=== PATIENT | male | born 1950 | race Caucasian/White ===

== ENCOUNTER → 2018-05-17 | Outpatient (CLI) | payer OTHER ==
[~2018-05-17] VITALS: Ht 175.3 cm; Wt 84.3 kg
[~2018-05-17] MED LIST: AMBIEN 5 MG TABL5 M1 PO; CELEXA40 MG PO; MS CONTIN15 MG PO; ZESTORETIC 20-1 EAC3 PO
--- NOTE | ~2018-05-17 | HPC ---
[facility] [place] [address] PAIN MANAGEMENT CONSULTATION Name: AMIEMARGARITO D Room #: REG [facility]#: [id number] Admission: 05/17/18 Attend Phys: Qasim Sam MD Discharge: Date of : 52 Report #: [id number] THIS REPORT FOR: //name// CC: Dr. Daniel GARCIA DO Renata Sam DATE OF SERVICE: 05/17/2018 CHIEF COMPLAINT: Bilateral lower extremity and back pain following work-related injury. I am seeing the patient today at the request of Workmen's Compensation. He is a 67-year-old who is also being sent to us by Dr. Sanchez, Neurosurgery, for evaluation and possible epidural steroid injection treatments. The patient was at work on 09/15/2017. 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 He immediately had some numbness in his right leg and pain in his upper back to the left. He has since that time been unable perform his tasks at work. He attempted to return to work but was incapacitated by pain. He a pain level of 10/10 throughout the day and his descriptors of pain include continuous, constant, sharp pain. Much of his pain is in the low back, radiating through the left buttock cheek and down into the lower leg. He also has pain in his thoracic region that radiates around the chest wall, also on the left. He has had 2 courses of physical therapy, the first after his initial injury, did not provide substantial improvement and he is currently still attending sessions with [facility] now in [place]. He attends 3-4 times a week and tells me that he does have some home exercise that he is trying. Watching his dramatic painful movements in the clinic I can't imagine that he is able to accomplish much independently from an exercise standpoint. He reports that the pain is made worse with prolonged sitting, any standing and walking and he has found nothing to improve his pain intensity. He reports that in order to be paid at work, he must go in and so he has been going to work, but the pain is so severe that at times he simply lays on the floor while he is there in order to serve his time requirements. He has seen three surgeons, Dr. Condon, Dr. Sanchez and Dr. White. There has been some disagreement on the merits of surgery, but he has apparently been offered a thoracolumbar fusion. The procedure has been denied by coverage and he reports to us that he is in litigation to get approval for surgery which he [address] [address] PAIN MANAGEMENT CONSULTATION Name: MARGARITO HOLLOWAY [facility] [id number] Admission: 05/17/18 Attend Phys: Qasim Sam MD Discharge: Date of : 52 Report #: [id number] feels will solve his pain problems. MEDICATIONS: Citalopram 40 mg daily, zolpidem 10 mg at bedtime, morphine sulfate 15 mg every 6-8 hours intermediate release and lisinopril 20/125 one tablet b.i.d. ALLERGIES: None listed. PAST MEDICAL HISTORY: Hypertension is his only chronic medical conditon . PAST SURGICAL HISTORY: He had laminectomy in 1992 and a second in 1994. From x-ray, it appears that this was at L5 on the right. He was able to return to work. SOCIAL HISTORY: He previously lived in [place] during the time of his back injuries in the . He was working there up until 14 years ago when he moved to [place] to be closer to family. He is . Denies the use of tobacco, drinks alcoholic beverages 1-3 times per week in a social setting. Denies the use of any recreational drugs, any history of addictions or family history of addictions. He enjoys outdoor activities and is unhappy that his pain limits his ability to downing this fall. He enjoys deer hunting with rifle. He retired a few years ago but says it wasn't for him. He returned to work and developed this condition which now dictates his life. The patient is currently in the process of litigation in attempts to get surgery approved. He is receiving workmen's disability payments. Impact of pain score which reviews the way in which pain interferes with activities on a 0-10 scale is scored 10 for general activity, mood, sleep, walking ability, relationships with others and enjoyment of life. REVIEW OF SYSTEMS: Positive for dyspnea on exertion and shortness of breath when lying flat, generalized fatigue, weakness and weight gain. He has nocturia, sexual difficulties, fatigue, weakness, numbness and tingling in his lower extremities, tremors, depression and insomnia. PHYSICAL EXAMINATION: NEUROLOGIC: Affect is serious, but pleasant. VITAL SIGNS: Blood pressure 120/70, heart rate 68 and respirations 16. He is 5 feet 9 inches, 185 pounds and BMI of 27.4. HEENT: Within normal limits. NECK: Supple. CHEST: Clear to auscultation. CARDIAC: Rhythm was regular, with no audible murmur. ABDOMEN: Soft with no hepatosplenomegaly. No palpable masses. No discomfort with deep palpation. [facility] [address] [place] [address] PAIN MANAGEMENT CONSULTATION Name: AMIEMARGARITO D Room #: REG [facility]#: [id number] Admission: 05/17/18 Attend Phys: Qasim Sam MD Discharge: Date of : 52 Report #: [id number] MUSCULOSKELETAL: Examination of the spine reveals normal alignment. He has restrictions in motion in flexion and extension due to pain. He can bend forward at the waist only about 15-20 degrees without complaining of severe pain. He has tenderness throughout the lower lumbar segment beginning around the spinous process of L3 and then down through the sacroiliac joints bilaterally. He has some straight leg raising discomfort bilaterally, left worse than right. There is tenderness along the left lateral chest wall above the rib cage and in the T-6-^10 distribution. EXTREMITIES: He has generalized weakness in the lower extremities. Deep tendon reflexes are 1+ biceps, triceps, brachioradialis; and in the lower extremity, he has 2+ knee jerk reflex on the right, 1-2+ ankle jerk reflex on the right. On the left, knee jerk is 2 and he has an absence of the S1 ankle reflex on the left. Sensation to light touch is intact, with no loss of sensation. Generalized weakness again is noted in hip flexion, leg extension, plantar and dorsiflexion. His gait is bizarre. He walks in very short shuffling steps and is tremulous as he walks. His hips are externally rotated with his toes pointing outward and he has difficulty in moving them inward because he reports instability and risk of fall. In walking a very short distance roughly 15 feet from the examining table to the wall and back, he was dyspneic, complaining of severe pain. This is marked difficulty and bilateral gait abnormalities were extreme and dramatic demonstrations of pain during the simple walking tasks. RADIOGRAPHIC DATA: MRI of the thoracic spine is reviewed and appears relatively normal. Lumbar MRI shows mild neural foraminal stenosis at L4-L5 and L5-S1. It appears to be a bit more pronounced at L3-L4, where there is stenosis of the lateral recess on the left. Multiple bilateral renal cysts were noted. IMPRESSION: 1. Low back pain with lumbar radiculopathy, bilateral, left worse than right. 2. Status post laminectomy x 2 in the . RECOMMENDATIONS: 1. For pain relief, I would recommend an epidural steroid injection at this juncture. 2. Physical rehabilitation should be continued aggressively. As I told him he is relatively young and can expect with good health to live into his 80s. He currently is very debilitated and walks like he is an 81-year-old. Only with aggressive physical therapy rehab and regular exercise will he regain strength and function in my opinion. [address] [address] PAIN MANAGEMENT CONSULTATION Name: MARGARITO HOLLOWAY Room #: REG [facility] Brodie#: [id number] Admission: 05/17/18 Attend Phys: Qasim Sam MD Discharge: Date of : 52 Report #: [id number] I opined that the MRI did not seem severe enough to warrant the thoracolumbar fusion that he had anticipated as something that would eliminate his pain problem. I discussed the aggressive nature of this surgery and the lack of any guarantees that it would alleviate pain given the findings seen on the MRI. I would encourage him to be cautious about proceeding with surgery without giving himself a good ample chance to respond to conservative measures. I made it clear that these are my opinions only and that physicians often provided different assessments and recommendations. We have asked for preauthorization for a lumbar epidural steroid injection to help facilitate therapy by easing radicular symptoms in his legs. He will return for epidural injection sometime in the next week or two. <ELECTRONICALLY SIGNED> By: Qasim Sam MD 05/18/18 1133 1612 0048 Qasim Sam MD /nt
[2018-05-17 08:57] VITALS: BP 120/70
== END ==
LOC: PAIN 06:51
DX: M54.16 Radiculopathy, lumbar region (principal)

== ENCOUNTER → 2018-06-07 | Outpatient (CLI) | payer OTHER ==
[~2018-06-07] VITALS: Ht 175.3 cm; Wt 83.9 kg
--- NOTE | ~2018-06-07 | HPC ---
[facility] [place] [address] PAIN MANAGEMENT CONSULTATION Name: MARGARITO HOLLOWAY Room #: REG [facility].#: [id number] Admission: 06/07/18 Attend Phys: Qasim Sam MD Discharge: Date of : 52 Report #: [id number] THIS REPORT FOR: //name// CC: [employer] [facility] [facility] Dr. Daniel Kuo DATE OF SERVICE: 06/07/2018 The patient is here today for the epidural steroid injection. Discussed on his consultation of 05/17/2018. There have been no significant changes in his condition. His pain has once again scored as a 10/10. He has difficulty with walking. Pain radiates through the back, hips and legs, particularly the left buttock cheek and anterolateral thigh. He also has some upper back pain. MEDICATIONS: Reviewed and reconciled and unchanged. The patient is on no blood thinners. MRI is reviewed, which again shows no moderate or high-grade spinal canal or neural foraminal stenoses; however, there is stenosis of the left lateral recess at the L5-S1 level as well as mild central and lateral recess narrowing at L2-L3 through L4-L5. This is not marked. PHYSICAL EXAMINATION: Blood pressure is 137/68, heart rate 60, respirations 16. His BMI is 27.3. Marked pain behaviors were noted in the pain clinic. He has some puffs as he moves from sitting to standing position and walks with an unusual gait atypical of radiculopathy or arthropathy. The gait is somewhat shuffling. He drags his left leg a bit today. IMPRESSION: 1. Low back pain with radiation into both legs, lumbar radiculopathy, left worse than right. 2. Post-laminectomy syndrome x 2 in . RECOMMENDATION: Epidural steroid injection trial under fluoroscopic guidance. He was taken to fluoroscopic suite, placed prone, skin prepped with ChloraPrep. Skin anesthetized over L3-L4. A 20-gauge Tuohy epidural needle advanced first attempt into the epidural space. Spread of dye was confirmed into the right side of the epidural space. I repositioned the needle once to obtain better spread to the left. Good epidurogram was obtained with 1 mL of Omnipaque. It was then followed by 3 mL of 0.5% lidocaine mixed with 80 mg of triamcinolone. [address] [address] PAIN MANAGEMENT CONSULTATION Name: MARGARITO HOLLOWAY Room #: REG CLI [facility]#: [id number] Admission: 06/07/18 Attend Phys: Qasim Sam MD Discharge: Date of : 52 Report #: [id number] He tolerated the procedure well and was observed for a short time and discharged. I have told him that to keep epidural injection is to see how he is doing in a week or so. He is given instructions on care over the next 24 hours and would like him to continue with physical therapy. By: 1219 1807 Qasim Sam MD /nt
[2018-06-07 10:40] VITALS: BP 137/68
== END | disposition home or self-care (01) ==
LOC: PAIN 07:00
DX: M54.16 Radiculopathy, lumbar region (principal); M96.1 Postlaminectomy syndrome, not elsewhere classified; Z87.891 Personal history of nicotine dependence

== ENCOUNTER → 2018-07-05 | Outpatient (CLI) | payer OTHER ==
[~2018-07-05] VITALS: Ht 175.3 cm; Wt 84.7 kg
--- NOTE | ~2018-07-05 | HPC ---
[facility] [place] [address] [address] [place] [address] PAIN MANAGEMENT CONSULTATION Name: AMIEMARGARITO D Room #: REG [facility].#: [id number] Admission: 07/05/18 Attend Phys: Qasim Sam MD Discharge: Date of : 52 Report #: [id number] THIS REPORT FOR: //name// CC: Renata Sam DATE OF SERVICE: 07/05/2018 Followup visit for low back pain with radiation into both legs. The patient returns to pain clinic today following an epidural steroid injection performed on 06/07/2018. He received no benefit whatsoever. Even during that local anesthetic, he reported that his pain was unimproved, all he felt was a fullness. His pain score is reported today again as a 10/10. He has marked difficulty with ambulation. The pain descriptor is a vague numbness, tingling and sharp sensation that radiates through his buttocks into both legs. It is worse with all activities and alleviated by nothing. He is continuing on medication provided by primary service, morphine 15 mg extended release. He is also on zolpidem 5 mg at bedtime for sleep and citalopram 40 mg once daily for mood. He is on lisinopril 20/12.5 once daily. The patient is here today with his . She wants to know what we will do next. PHYSICAL EXAMINATION: His affect is serious. He reports his pain as 10/10. His blood pressure is 114/73, heart rate 58, respirations 60, O2 sat 98%. His height is 5 feet 9 inches, weight 186.8 with a BMI of 27.6. He is able to move from independent sitting to standing, but uses his arms to push up from the chair. It takes a bit of time for him to assume the standing position and again he has some puffs as he does this. He has an unusual bobbing-type gait previously noted. He shuffles a bit, but he tends to gómez up and down as he moves. It is most unusual pattern. He is wearing heavy boots. He was able to resume the sitting position and remove the boots independently. Examination of the spine reveals normal alignment, mild tenderness in the mid thoracic region. Minimal tenderness across the lumbosacral segment where there is a small scar from previous surgery. Straight leg raising reveals mild discomfort on the left in the posterior aspect. Sensation is intact. There is no focal weakness. Deep tendon reflexes are 2-3+ at the knees and 2+ at the ankles. Sensation is intact. I have reviewed the MRI report for the thoracic and lumbar spine dated 01/27/2018. The report is brief. It suggests in the thoracic spine that there are no fractures, malalignment or acute abnormal marrow signals. There is no abnormal enhancement. There is no substantial spinal canal or neural foraminal [address] [address] PAIN MANAGEMENT CONSULTATION Name: MARGARITO HOLLOWAY Room #: REG [facility]#: [id number] Admission: 07/05/18 Attend Phys: Qasim Sam MD Discharge: Date of : 52 Report #: [id number] stenosis. The intervertebral disk heights are preserved. There is some minimal degenerative thoracic spine change with some minimal posterior bulging throughout the thoracic spine. In the lumbar spine, there are no moderate or high-grade spinal canal or neural foraminal stenoses. In the body of the report, is noted stenosis of the lateral recess and mild spinal canal stenosis at L2-L3, L3-L4 and L4-L5. IMPRESSION: Persistent back pain with radiation into both legs. Only minimal changes of the MRI, which are inconsistent with physical exam. There is noted some hyperreflexia. RECOMMENDATIONS: I do not believe he is a candidate for further injection therapies. He is already on stronger pain medication. He has completed a course of physical therapy and reports that he continues to do some flexion exercises. I suggest the possibility of a neurologist and he reports that he has already seen a neurologist, although it seems it was just Neurosurgery, Daniel Cornelius, and Christopher. I am not sure if an EMG or other study would provide more information, but at this time, I am at a loss to describe his dramatic pain behaviors. He was discharged from our clinic with recommendations to continue with regular exercises learned through physical therapy. By: 1235 1728 Qasim Sam MD /nt
[2018-07-05 10:59] VITALS: BP 114/73
== END ==
LOC: PAIN 06:35
DX: M54.5 Low back pain (principal); M79.604 Pain in right leg; M79.605 Pain in left leg; Z79.899 Other long term (current) drug therapy